=== PATIENT | female | born 1940 | race Caucasian/White ===

== ENCOUNTER 2018-06-28 15:09 | Inpatient (IN) | payer MEDICAID, MEDICARE ==
[2018-06-28] MEDS ORDERED: NACL 0.9% 500 ML 500 ML IV ONE ×2 (15:28→17:06)
[2018-06-28 16:21] LABS: Basophils % (Auto) 0.2 % (0.0-1.8); Eosinophils # (Auto) 0.1 K/mm3 (0.0-0.4); Eosinophils % (Auto) 1.9 % (0.0-4.3); Lymphocytes # (Auto) 0.5 K/mm3 (1.2-5.4); Lymphocytes % (Auto) 8.7 % (13.4-35.0); Mean Corpuscular HGB Conc 33 % (30-34); Mean Corpuscular Volume 103 fl (79-97); Monocytes # (Auto) 0.7 K/mm3 (0.0-0.8); Monocytes % (Auto) 11.6 % (0.0-7.3); Platelet Count 187 K/mm3 (140-440); Red Blood Count 1.66 M/mm3 (3.65-5.03); Red Cell Distribution Width 16.2 % (13.2-15.2)
[2018-06-28] MEDS ORDERED: NACL 0.9% 1000 ML 1,000 ML IV ONE (16:21)
[2018-06-28 16:33] LABS: INR 0.84 (0.87-1.13)
[2018-06-28 16:35] LABS: Hematocrit 17.1 % (30.3-42.9); Hemoglobin 5.6 gm/dl (10.1-14.3)
[2018-06-28 16:39] LABS: Albumin 3.8 g/dL (3.9-5); Calcium 9.7 mg/dL (8.4-10.2)
[2018-06-28] MEDS ORDERED: ZOSYN/NS 4.5GM/100ML 4.5 GM/100 ML VIAL IV ONE (17:08)
--- NOTE | 2018-06-28 17:12 | Emergency Department Report ---
- General Chief complaint: Weakness Stated complaint: LOW BLOOD Time Seen by Provider: 06/28/18 16:19 Source: patient, family, old records reviewed (no previous medical record available for review ) Mode of arrival: Wheelchair Limitations: Language Barrier (windows and doors installer line used for interpretation since patient speaks Yoruba) - History of Present Illness Initial comments: 77-year-old female the past medical history of leukemia presents to the hospital complaining of generalized weakness for "a long time". She went to her primary care doctor's office for a regular checkup and was told that she was anemic and sent to the ER for evaluation. She presents here with a fever but denies any fever or chills at home. She has had a cough productive of yellow/black/blood- tinged sputum for several days. She complains of minimal shortness of breath. No reports of nausea, vomiting, diarrhea, hematochezia, melena, previous GI bleed, or anemia requiring blood transfusion. Patient was diagnosed with leukemia 2 years ago in his receiving intermittent injections for treatment. La st "injection" was 3 months ago. Patient complains of pains to her arms and legs and tingling to her fingertips that is mild to moderate in intensit. Patient states she did receive a flu shot this season. PMD: Dr. Ezekiel Hodge. She cannot recall the name of her oncologist. - Related Data Allergies Allergy/AdvReac Type Severity Reaction Status Date / Time No Known Allergies Allergy Unverified 06/28/18 15:23 ED Review of Systems ROS: Stated complaint: LOW BLOOD Other details as noted in HPI Comment: All other systems reviewed and negative ED Past Medical Hx - Past Medical History Hx of Cancer: Yes (leukemia) - Surgical History Past Surgical History?: No Additional Surgical History: Denies surgery - Social History Smoking Status: Never Smoker Substance Use Type: None ED Physical Exam - General Limitations: Language Barrier - Other Other exam information: General: No limitations, patient is alert in no acute distress Head exam: Atraumatic, normocephalic Eyes exam: Normal appearance, pale conjunctiva ENT: Moist mucous membrane, normal oropharynx, no thrush or exudate Neck exam: Normal inspection, full range of motion, no meningismus nontender Respiratory exam: Clear to auscultation bilateral, no wheezes, rales, crackles Cardiovascular: Normal rate and rhythm, normal heart sounds Abdomen: Soft, nondistended, and nontender, with normal bowel sounds, no rebound, or guarding Rectal: Guaiac negative brown stool Extremity: Full range of motion normal inspection no deformity Back: Normal Inspection, full range of motion, no tenderness Neurologic: Alert, oriented x3, cranial nerves intact, no motor or sensory deficit Psychiatric: normal affect, normal mood Skin: Warm, dry, intact ED Course Vital Signs 06/28/18 15:23 Temperature 101 F H Pulse Rate 100 H Respiratory 18 Rate Blood Pressure 99/54 O2 Sat by Pulse 96 Oximetry ED Medical Decision Making - Lab Data Result diagrams: 06/28/18 16:02 06/28/18 16:02 Lab Results 06/28/18 06/28/18 06/28/18 Range/Units 16:01 16:01 16:02 WBC 5.7 (4.5-11.0) K/mm3 RBC 1.66 L (3.65-5.03) M/mm3 Hgb 5.6 L* (10.1-14.3) gm/dl Hct 17.1 L* (30.3-42.9) % MCV 103 H (79-97) fl MCH 34 H (28-32) pg MCHC 33 (30-34) % RDW 16.2 H (13.2-15.2) % Plt Count 187 (140-440) K/mm3 Lymph % (Auto) 8.7 L (13.4-35.0) % [place] % (Auto) 11.6 H (0.0-7.3) % Eos % (Auto) 1.9 (0.0-4.3) % Baso % (Auto) 0.2 (0.0-1.8) % Lymph # 0.5 L (1.2-5.4) K/mm3 [place] # 0.7 (0.0-0.8) K/mm3 Eos # 0.1 (0.0-0.4) K/mm3 Baso # 0.0 (0.0-0.1) K/mm3 Seg Neutrophils % 77.6 H (40.0-70.0) % Seg Neutrophils # 4.4 (1.8-7.7) K/mm3 PT 11.9 L (12.2-14.9) Sec. INR 0.84 L (0.87-1.13) VBG pH 7.370 (7.320-7.420) Sodium (137-145) mmol/L Potassium (3.6-5.0) mmol/L Chloride (98-107) mmol/L Carbon Dioxide (22-30) mmol/L Anion Gap mmol/L BUN (7-17) mg/dL Creatinine (0.7-1.2) mg/dL Estimated GFR ml/min BUN/Creatinine Ratio % Glucose (65-100) mg/dL Lactic Acid (0.7-2.0) mmol/L Calcium (8.4-10.2) mg/dL Total Bilirubin (0.1-1.2) mg/dL AST (5-40) units/L ALT (7-56) units/L Alkaline Phosphatase (35-129) units/L Total Protein (6.3-8.2) g/dL Albumin (3.9-5) g/dL Albumin/Globulin Ratio % Blood Type Crossmatch 06/28/18 06/28/18 06/28/18 Range/Units 16:02 16:02 16:09 WBC (4.5-11.0) K/mm3 RBC (3.65-5.03) M/mm3 Hgb (10.1-14.3) gm/dl Hct (30.3-42.9) % MCV (79-97) fl MCH (28-32) pg MCHC (30-34) % RDW (13.2-15.2) % Plt Count (140-440) K/mm3 Lymph % (Auto) (13.4-35.0) % [place] % (Auto) (0.0-7.3) % Eos % (Auto) (0.0-4.3) % Baso % (Auto) (0.0-1.8) % Lymph # (1.2-5.4) K/mm3 Hood # (0.0-0.8) K/mm3 Eos # (0.0-0.4) K/mm3 Baso # (0.0-0.1) K/mm3 Seg Neutrophils % (40.0-70.0) % Seg Neutrophils # (1.8-7.7) K/mm3 PT (12.2-14.9) Sec. INR (0.87-1.13) VBG pH (7.320-7.420) Sodium 135 L (137-145) mmol/L Potassium 4.5 (3.6-5.0) mmol/L Chloride 100.2 (98-107) mmol/L Carbon Dioxide 20 L (22-30) mmol/L Anion Gap 19 mmol/L BUN 26 H (7-17) mg/dL Creatinine 2.4 H (0.7-1.2) mg/dL Estimated GFR 19 ml/min BUN/Creatinine Ratio 11 % Glucose 115 H (65-100) mg/dL Lactic Acid 1.00 (0.7-2.0) mmol/L Calcium 9.7 (8.4-10.2) mg/dL Total Bilirubin 0.60 (0.1-1.2) mg/dL AST 28 (5-40) units/L ALT 10 (7-56) units/L Alkaline Phosphatase 229 H (35-129) units/L Total Protein 8.4 H (6.3-8.2) g/dL Albumin 3.8 L (3.9-5) g/dL Albumin/Globulin Ratio 0.8 % Blood Type O POSITIVE Crossmatch See Detail ua pending - EKG Data -: EKG Interpreted by Ak EKG shows normal: sinus rhythm, axis (qrs 11), QRS complexes (qrd 81), ST-T waves (no steim/t inv) Rate: normal (95) - EKG Data When compared to previous EKG there are: previous EKG unavailable - Radiology Data Radiology results: report reviewed Chest x-ray: Right middle lobe consolidation. Enlarged cardiac silhouette. Moderate torturous thoracic aorta - Medical Decision Making Patient requires admission to the hospital for blood transfusion. 2 units of PRBC initiated in the ED. No signs of active hemorrhage. Rocephin and azithromycin ordered for community-acquired pneumonia. Ua pending at dispo. Renal insufficiency also noted with unknown baseline. - Differential Diagnosis viral syndrome, pneumonia, UTI, GI bleed, anemia, cancer Critical Care Time: No Critical care attestation.: If time is entered above; I have spent that time in minutes in the direct care of this critically ill patient, excluding procedure time. ED Disposition Clinical Impression: Symptomatic anemia, Fever, Leukemia, Renal insufficiency, Right middle lobe pneumonia Disposition: OP ADMIT IP TO THIS HOSP Is pt being admited?: Yes Condition: Stable Time of Disposition: 17:15 (Dr Wells/hosp)
--- NOTE | 2018-06-28 17:13 | XRay Report ---
FINAL REPORT EXAM: XR CHEST 1V AP HISTORY: possible Sepsis TECHNIQUE: Frontal portable view of the chest Comparison: None FINDINGS: The there is the appearance of areas of pulmonary consolidation in the right midlung field and left l lee base. There is no evidence of pneumothorax or pleural fluid collection. The cardiac silhouette is enlarged. This may be exaggerated by portable technique. The thoracic aorta is moderately tortuous. The bony structures are unremarkable. Visualization detail of the thoracic spine is limited. IMPRESSION: 1. Appearance of areas of pulmonary consolidation right midlung field and left lung base suggestive o f pulmonary infiltrates. If further imaging is required, CT chest may be helpful. 2. Enlarged cardiac silhouette. 3. Moderate tortuosity thoracic aorta.
[2018-06-28] MEDS ORDERED: ZITHROMAX 500 MG in NACL 0.9% 250ML 250 ML IV ONE (18:00)
[2018-06-28 18:08] LABS: Bacteria,Urine 1+ /HPF (Negative); Bilirubin,Urine NEG (Negative); Blood,Urine NEG (Negative); Color,Urine Yellow (Yellow); Mucus,Urine FEW /HPF; Urobilinogen,Urine < 2.0 mg/dL (<2.0)
[2018-06-28] MEDS ORDERED: ROCEPHIN/NS 1 GM/50 ML 1 GM/50 ML BAG IV ONE (18:30)
[2018-06-28] MEDS ORDERED: NACL 0.9% 500 ML 500 ML ONE (21:35)
[2018-06-28] MEDS ORDERED: SODIUM CHLORIDE FLUSH SYRINGE 10 ML IV PRN (22:52)
[2018-06-28] MEDS ORDERED: ZOFRAN IV PRN (22:52)
[2018-06-28] MEDS ORDERED: DILAUDID IV PRN (22:52)
[2018-06-28] MEDS ORDERED: TYLENOL PO PRN (22:52)
[2018-06-28] MEDS ORDERED: NACL 0.9% 1000 ML 1,000 ML IV SCH (23:00)
[2018-06-29 06:07] LABS: Basophils % (Auto) 0.1 % (0.0-1.8); Eosinophils # (Auto) 0.1 K/mm3 (0.0-0.4); Eosinophils % (Auto) 1.6 % (0.0-4.3); Hematocrit 22.8 % (30.3-42.9); Hemoglobin 7.7 gm/dl (10.1-14.3); Lymphocytes # (Auto) 0.5 K/mm3 (1.2-5.4); Lymphocytes % (Auto) 8.2 % (13.4-35.0); Mean Corpuscular HGB Conc 34 % (30-34); Mean Corpuscular Volume 95 fl (79-97); Monocytes # (Auto) 0.5 K/mm3 (0.0-0.8); Monocytes % (Auto) 9.7 % (0.0-7.3); Platelet Count 158 K/mm3 (140-440); Red Blood Count 2.39 M/mm3 (3.65-5.03)
--- NOTE | 2018-06-29 06:44 | Event Note ---
Date: 06/28/18 See dictated H/p in reports Severe Anemia
--- NOTE | 2018-06-29 07:22 | Progress Note ---
Hospitalist Physical - Constitutional Vitals: Temp Pulse Resp BP Pulse Ox 99.5 F 71 18 103/55 100 06/28/18 23:50 06/28/18 23:52 06/29/18 06:00 06/28/18 23:52 06/28/18 23:52 Results - Labs CBC & Chem 7: 06/29/18 05:19 06/29/18 05:19 Labs: Laboratory Last Values WBC 5.6 K/mm3 (4.5-11.0) 06/29/18 05:19 RBC 2.39 M/mm3 (3.65-5.03) L 06/29/18 05:19 Hgb 7.7 gm/dl (10.1-14.3) L 06/29/18 05:19 Hct 22.8 % (30.3-42.9) L 06/29/18 05:19 MCV 95 fl (79-97) 06/29/18 05:19 MCH 32 pg (28-32) 06/29/18 05:19 MCHC 34 % (30-34) 06/29/18 05:19 RDW 20.0 % (13.2-15.2) H 06/29/18 05:19 Plt Count 158 K/mm3 (140-440) 06/29/18 05:19 Lymph % (Auto) 8.2 % (13.4-35.0) L 06/29/18 05:19 [place] % (Auto) 9.7 % (0.0-7.3) H 06/29/18 05:19 Eos % (Auto) 1.6 % (0.0-4.3) 06/29/18 05:19 Baso % (Auto) 0.1 % (0.0-1.8) 06/29/18 05:19 Lymph # 0.5 K/mm3 (1.2-5.4) L 06/29/18 05:19 [place] # 0.5 K/mm3 (0.0-0.8) 06/29/18 05:19 Eos # 0.1 K/mm3 (0.0-0.4) 06/29/18 05:19 Baso # 0.0 K/mm3 (0.0-0.1) 06/29/18 05:19 Seg Neutrophils % 80.4 % (40.0-70.0) H 06/29/18 05:19 Seg Neutrophils # 4.5 K/mm3 (1.8-7.7) 06/29/18 05:19 PT 11.9 Sec. (12.2-14.9) L 06/28/18 16:01 INR 0.84 (0.87-1.13) L 06/28/18 16:01 VBG pH 7.370 (7.320-7.420) 06/28/18 16:01 Sodium 139 mmol/L (137-145) 06/29/18 05:19 Potassium 4.6 mmol/L (3.6-5.0) 06/29/18 05:19 Chloride 106.0 mmol/L (98-107) 06/29/18 05:19 Carbon Dioxide 17 mmol/L (22-30) L 06/29/18 05:19 Anion Gap 21 mmol/L 06/29/18 05:19 BUN 23 mg/dL (7-17) H 06/29/18 05:19 Creatinine 2.0 mg/dL (0.7-1.2) H 06/29/18 05:19 Estimated GFR 24 ml/min 06/29/18 05:19 BUN/Creatinine Ratio 12 % 06/29/18 05:19 Glucose 115 mg/dL (65-100) H 06/29/18 05:19 Hemoglobin A1c 6.8 % (4-6) H 06/28/18 23:05 Lactic Acid 0.90 mmol/L (0.7-2.0) 06/28/18 18:02 Calcium 9.0 mg/dL (8.4-10.2) 06/29/18 05:19 Total Bilirubin 0.60 mg/dL (0.1-1.2) 06/28/18 16:02 AST 28 units/L (5-40) 06/28/18 16:02 ALT 10 units/L (7-56) 06/28/18 16:02 Alkaline Phosphatase 229 units/L (35-129) H 06/28/18 16:02 Total Protein 8.4 g/dL (6.3-8.2) H 06/28/18 16:02 Albumin 3.8 g/dL (3.9-5) L 06/28/18 16:02 Albumin/Globulin Ratio 0.8 % 06/28/18 16:02 Urine Color Yellow (Yellow) 06/28/18 17:30 Urine Turbidity Slightly-cloudy (Clear) 06/28/18 17:30 Urine pH 5.0 (5.0-7.0) 06/28/18 17:30 Ur Specific [place] 1.013 (1.003-1.030) 06/28/18 17:30 Urine Protein 100 mg/dl mg/dL (Negative) 06/28/18 17:30 Urine Glucose (UA) Neg mg/dL (Negative) 06/28/18 17:30 Urine Ketones Neg mg/dL (Negative) 06/28/18 17:30 Urine Blood Neg (Negative) 06/28/18 17:30 Urine Nitrite Neg (Negative) 06/28/18 17:30 Urine Bilirubin Neg (Negative) 06/28/18 17:30 Urine Urobilinogen < 2.0 mg/dL (<2.0) 06/28/18 17:30 Ur Leukocyte Esterase Sm (Negative) 06/28/18 17:30 Urine WBC (Auto) 5.0 /HPF (0.0-6.0) 06/28/18 17:30 Urine RBC (Auto) 2.0 /HPF (0.0-6.0) 06/28/18 17:30 U Epithel Cells (Auto) 5.0 /HPF (0-13.0) 06/28/18 17:30 Urine Bacteria (Auto) 1+ /HPF (Negative) 06/28/18 17:30 Urine Mucus Few /HPF 06/28/18 17:30 Urine Yeast (Budding) Few /HPF 06/28/18 17:30 Blood Type O POSITIVE 06/28/18 16:09 Antibody Screen Negative 06/28/18 16:09 Crossmatch See Detail 06/28/18 16:09
--- NOTE | 2018-06-29 07:32 | Discharge Summary ---
Providers - Providers Date of Admission: 06/28/18 17:15 Date of discharge: 06/29/18 Attending physician: EPHRAIM BECKFORD MD 06/28/18 22:52 Consult to Physician [CONS] Routine Comment: Consulting Provider: MERY CHEEMA Physician Instructions: Reason For Exam: Anemia Primary care physician: LUCINDA JAMES Hospitalization Reason for admission: symptomatic anemia, fever, acute renal failure Condition: Stable Pertinent studies: Chest x-ray right middle and lower lobe infiltrates Hospital course: 77 year old french woman with past medical history significant for leukemia was sent from her primary care physician for symptomatic anemia. At presentation her hemoglobin level was 5.6 and she was also febrile. Chest x-ray showed right middle and lower lobe infiltrates. Patient was transfused with 2 units of blood and her hemoglobin this morning was 7.7. Patient was treated with IV Rocephin and azithromycin. Patient denied cough or shortness of breath. I have discussed with the patient using Faroese foreign language interpreter #[id number] and patient wants to go home as she has doctor appointment. Called her grandson son Mr. Colón at [phone] and he also agreed with the plan to take her home maintenance medical advice. I have discussed the risk benefit, and she wants to go home. I have discussed with her grand son &the patient the need to go to her PCP and getting treatment for pneumonia. Have explained to her about acute renal failure too. Hematology consult was placed. Disposition: [id number] LEFT AGAINST MED ADVICE Time spent for discharge: 31 minutes - Discharge Diagnoses (1) Fever Status: Acute (2) Leukemia Status: Acute (3) Renal insufficiency Status: Acute (4) Right middle lobe pneumonia Status: Acute (5) Symptomatic anemia Status: Acute Core Measure Documentation - Palliative Care Palliative Care/ Comfort Measures: Not Applicable - Core Measures Any of the following diagnoses?: none Exam - Physical Exam Narrative exam: Not in cardiopulmonary distress. The patient appeared well nourished and normally developed. Vital signs as documented. Head exam is unremarkable. No scleral icterus . Neck is without jugular venous distension, thyromegaly, or carotid bruits. Lungs are clear to auscultation. Cardiac exam reveals regular rate and Rhythm. First and second heart sounds normal. No murmurs, rubs or gallops. Abdominal exam reveals normal bowel sounds, no masses, no organomegaly and no aortic enlargement. Extremities are nonedematous and both femoral and pedal pulses are normal. ROAD CONTRACTOR: Alert and oriented 3. No focal weakness. - Constitutional Vitals: Temp Pulse Resp BP Pulse Ox 99.5 F 71 18 103/55 100 06/28/18 23:50 06/28/18 23:52 06/29/18 06:00 06/28/18 23:52 06/28/18 23:52 Plan Activity: no restrictions Weight Bearing Status: Full Weight Bearing Diet: regular Follow up with: LUCINDA JAMES MD [Primary Care Provider] - 7 Days
--- NOTE | 2018-06-29 08:11 | History and Physical Report ---
CHIEF COMPLAINT: Severe weakness. HISTORY OF PRESENT ILLNESS: A 77-year-old female with past medical history of leukemia, comes in for generalized weakness. She went to her regular primary care physician and was told that she was anemic and was sent for blood transfusion. The patient presents with fever, but no fever or chills at home. Also, cough productive of yellow sputum. Complains of minimal shortness of breath. The patient was diagnosed with leukemia 2 years ago and is receiving treatment for that. PRIMARY CARE: Dr. Ezekiel Hodge. PAST MEDICAL HISTORY: Leukemia. PAST SURGICAL HISTORY: No surgeries. SOCIAL HISTORY: Does not smoke. FAMILY HISTORY: Noncontributory. REVIEW OF SYSTEMS: Significant for being severely weak. Otherwise, review of systems negative. PHYSICAL EXAMINATION: GENERAL: Elderly female, cooperative during examination. VITAL SIGNS: Blood pressure is 103/55. Temperature is 98.5. Pulse is 71. Respirations are 20. HEENT: Pale mucous membranes. NECK: Supple, no lymphadenopathy, no thyromegaly. LUNGS: Clear to auscultation and percussion. Good air entry. CARDIOVASCULAR SYSTEM: S1, S2 heard. No gallop, no murmur, no rub. Apical impulse in left fifth intercostal space in midclavicular line. ABDOMEN: Soft and benign. No hepatosplenomegaly. No guarding, no rigidity. Hernial orifices are normal. EXTREMITIES: Good pedal pulses. No pedal edema. CENTRAL NERVOUS SYSTEM: Alert and oriented x 4, nonfocal exam. SKIN: Normal. LABORATORY DATA: Significant for hemoglobin and hematocrit of 5.6 and 17.1, platelet count of 187,000. White count of 5700. BUN and creatinine of 26 and 2.4. Total protein is 8.4, albumin is 3.8. Urine is normal. DIAGNOSTIC DATA: Chest x-ray showed areas of pulmonary consolidation in the right mid lung field and left lung suggestive of pulmonary infiltrates. Enlarged cardiac silhouette. ASSESSMENT AND PLAN: 1. Acute anemia, probably secondary to leukemia. The patient to be transfused. Heme/onc consult requested. 2. Pneumonia. The patient initiated on IV antibiotics. 3. Hyponatremia, mild. Should correct with IV fluids. 4. Acute kidney injury. IV fluids for the time being. 5. Hyperglobulinemia. Will defer to the oncologist whether there is a question of multiple myeloma. 6. Deep vein thrombosis prophylaxis, Lovenox subcutaneously daily. JOB# [id number] BERTM/MARY JANE MTDD
--- NOTE | 2018-06-29 08:22 | Event Note ---
Date: 06/29/18 [id number]
[2018-06-29 09:45] LABS: Iron 43 ug/dL (37-170); Total Iron Binding Capacity 187 mcg/dL (250-450)
[2018-06-29] MEDS ORDERED: SODIUM CHLORIDE FLUSH SYRINGE 10 ML IV SCH (10:00)
[2018-06-29] MEDS ORDERED: PEPCID IV SCH (10:00)
[2018-06-29] MEDS ORDERED: PNEUMOVAX 23 IM ONE (12:00)
[2018-06-29 15:09] VITALS: BP 107/49
[2018-06-29] MEDS ORDERED: ZITHROMAX PO SCH (18:00)
[2018-06-29] MEDS ORDERED: ROCEPHIN/NS 1 GM/50 ML 1 GM/50 ML BAG IV SCH (20:00)
--- NOTE | 2018-06-30 02:28 | Consultation ---
ATTENDING PHYSICIAN: Dr. Mccloud/Dr. Wells. REASON FOR CONSULTATION: Anemia. HISTORY OF PRESENT ILLNESS: I saw the patient, a 77-year-old female in the medical floor. The patient says there is a history of leukemia, details not clear. She came to the hospital because of generalized weakness. When she went to the primary, she was told she was anemic and sent for transfusion. History of fever was present at one time but in the hospital, there was no fever or chills. History of cough present with yellow sputum. History of minimal exertion, shortness of breath. As per information, the patient has leukemia, which was diagnosed 2 years ago and is on treatment for same. PAST MEDICAL HISTORY: Leukemia, details not clear if it is acute or chronic, but she is on medication for the last 2 years. PAST SURGICAL HISTORY: Nil acute. SOCIAL HISTORY: No history of tobacco usage. FAMILY HISTORY: Noncontributory. MEDICATIONS: Reviewed. PHYSICAL EXAMINATION: VITAL SIGNS: Temperature 98, pulse 83, respirations 18, BP 107/49. HEENT: Pallor present, no icterus. No neck lymph nodes. HEART: S1, S2. LUNGS: Clear to auscultation. ABDOMEN: Soft. NEUROLOGIC: Follows simple commands. LABORATORY DATA: White cell 5.7, hemoglobin 5.6 and after transfusion 7.7, MCV 103, platelet 187. Potassium 4.6, creatinine 2, and bilirubin 0.6. Serum iron 43, ferritin 741, B12 is 1000, folate more than 20. RADIOLOGY: Chest x-ray was done. ASSESSMENT: 1. Anemia, MCV was elevated. Transfusion support given. 2. History of leukemia, details not clear if it is acute or chronic. The patient will follow her oncologist. 3. History of pneumonia. 4. History of renal impairment. 5. History of hypergammaglobulinemia. 6. Macrocytosis. I will follow the patient during inpatient stay and then in the clinic setting. JOB# [id number] KERVIN/MARY JANE
[2018-07-03 20:41] LABS: Abnormal Protein Band 1 1.8 g/dL; Albumin 3.2 g/dL (3.8-4.8); Gamma Globulin 0.3 g/dL (0.8-1.7)
== END 2018-06-29 16:31 | disposition left against medical advice (07) | DRG 682 ==
LOC: ED 15:09 → 2B-ACE 17:15
PROVIDERS: ADMIT Internal Medicine; ATTEND Internal Medicine
PROC: 30233N1 Transfusion of Nonautologous Red Blood Cells into Peripheral Vein, Percutaneous Approach (ICD-10-PCS; principal; 2018-06-28)
PROC: 3E0234Z Introduction of Serum, Toxoid and Vaccine into Muscle, Percutaneous Approach (ICD-10-PCS; 2018-06-29)
DX: N17.9 Acute kidney failure, unspecified (principal); J18.1 Lobar pneumonia, unspecified organism; C95.90 Leukemia, unspecified not having achieved remission; E87.1 Hypo-osmolality and hyponatremia; D64.9 Anemia, unspecified; R77.1 Abnormality of globulin; D75.89 Other specified diseases of blood and blood-forming organs; Z53.21 Procedure and treatment not carried out due to patient leaving prior to being seen by health care provider; Z23 Encounter for immunization
CPT/HCPCS: 36415; 71045; 80048; 80053; 81001; 82140; 82271; 82607; 82728; 82747; 82805; 83036; 83550; 84165; 85025; 85610; 86850; 86900; 86901; 86920; 87040; 87086; 90732; 93005; 93010; G0378; J0456; J0696; J7030; J7040; J7050; P9016